=== PATIENT | female | born 1965 | race African-American/Black ===

== ENCOUNTER 2018-08-26 19:58 | Inpatient (IN) ==
[2018-08-26 21:43] LABS: Basophils # 0.1 10*3/uL (0.0-0.2); Basophils % 0.6 % (0.0-0.8); Eosinophils # 0.1 10*3/uL (0.0-0.87); Eosinophils % 0.7 % (0.00-10.9); Hematocrit 21.8 VOL% (35.7-47.0); Hemoglobin 7.8 GM/DL (12.0-16.0); Immature Granulocytes % 2.4 %; Immature Granulocytes Absolute 0.29 #; Lymphocytes # 4.1 10*3/uL (1.4-4.0); Lymphocytes % 33.6 % (21.3-54.2); Mean Corpuscular HGB Conc 35.8 GM/DL (32-36); Mean Corpuscular Volume 93.2 FL (87-102); Mean Platelet Volume 10.2 FL (9.6-12.0); Monocytes % 9.2 % (1.7-12.7); Neutrophils % 53.5 % (38.7-73.9); Platelet Count 63 T/CUMM (130-400); Red Blood Count 2.34 MC/CUMM (3.8-5.5); Red Cell Distribution Width 19.5 % (9.3-17.3); White Blood Count 12.3 T/CUMM (4-12)
[2018-08-26 21:50] LABS: Apearance,Urine CLEAR (Clear); Blood, Urine Negative (Negative); Glucose,Urine (UA) Negative (Negative); Ketones,Urine Negative (Negative); Nitrite,Urine Negative (Negative); Protein,Urine Negative; Urine Color Amber (Yellow)
[2018-08-26 21:53] LABS: Albumin 1.6 G/DL (3.4-5.0); Bilirubin,Total 8.5 MG/DL (0.2-1.0); Calcium 8.1 MG/DL (8.5-10.1); Osmolality,Calculated 271.7 MOS/KG (273-304)
[2018-08-26 22:01] LABS: INR 2.5
[2018-08-26 22:02] LABS: PT Patient Result 26.7 SECS
[2018-08-26 22:04] LABS: Bilirubin,Urine Moderate mg/dL (Negative)
[2018-08-27] MEDS ORDERED: diphenhydrAMINE 50 MG/1 ML VIAL IV STA (00:14)
[2018-08-27] MEDS ORDERED: ALBUTEROL 2.5 MG/3 ML NEB RESP TX PRN (00:25)
[2018-08-27] MEDS ORDERED: PHYTONADIONE 10 MG/1 ML AMP SUBCUT ONE (00:31)
[2018-08-27] MEDS ORDERED: SODIUM CHLORIDE 0.9% 1,000 ML IV PRN (00:33)
[2018-08-27] MEDS: LORazepam 2 MG/1 ML VIAL IV PRN (01:49)
[2018-08-27 01:54] LABS: Platelet Estimate Decreased; Target Cells Few
[2018-08-27] MEDS: LEVOFLOXACIN INJ 500 MG in PREMIX 1 EACH IV SCH (03:33)
[2018-08-27] MEDS: POTASSIUM CHLORIDE 20 MEQ TABLET PO PRN ×3 (03:34→09:07)
[2018-08-27 07:23] LABS: Hematocrit 30.3 VOL% (35.7-47.0)
[2018-08-27 07:32] LABS: Hemoglobin 10.7 GM/DL (12.0-16.0)
[2018-08-27 07:38] LABS: INR 2.2
[2018-08-27 07:39] LABS: PT Patient Result 23.7 SECS
[2018-08-27 07:41] LABS: Albumin 1.7 G/DL (3.4-5.0); Bilirubin,Total 8.4 MG/DL (0.2-1.0); Calcium 8.1 MG/DL (8.5-10.1); Osmolality,Calculated 272.5 MOS/KG (273-304); Total Protein 8.2 G/DL (6.4-8.3)
[2018-08-27 08:27] LABS: Hematocrit 28.8 VOL% (35.7-47.0); Hemoglobin 10.5 GM/DL (12.0-16.0)
[2018-08-27] MEDS ORDERED: THIAMINE 200 MG/2 ML VIAL IV SCH (09:00)
[2018-08-27] MEDS ORDERED: PANTOPRAZOLE 40 MG VIAL IV SCH (09:00)
[2018-08-27] MEDS: THIAMINE 100 MG TABLET PO SCH (09:07)
[2018-08-27] MEDS: FOLIC ACID 1 MG TABLET PO SCH (09:07)
[2018-08-27] MEDS: MULTIVITAMIN (CENTRUM) TABLET PO SCH (09:07)
[2018-08-27] MEDS ORDERED: chlordiazePOXIDE 10 MG CAPSULE PO SCH (09:30)
[2018-08-27] MEDS: CHOLESTYRAMINE 4 GM PACK PO SCH ×2 (10:09→21:16)
[2018-08-27 11:43] LABS: Hematocrit 28.3 VOL% (35.7-47.0); Hemoglobin 9.9 GM/DL (12.0-16.0)
[2018-08-27] MEDS ORDERED: ACETAMINOPHEN 325 MG TABLET PO PRN (11:57)
[2018-08-27] MEDS: chlordiazePOXIDE 10 MG CAPSULE PO SCH ×3 (12:33→21:16)
[2018-08-27 18:13] LABS: Hematocrit 27.3 VOL% (35.7-47.0); Hemoglobin 9.9 GM/DL (12.0-16.0)
[2018-08-27] MEDS ORDERED: OCTREOTIDE 100 MCG/ML SYRINGE IV ONE (18:46)
[2018-08-27] MEDS: OCTREOTIDE 500 MCG in SODIUM CHLORIDE 0.9% 100 ML IV SCH (21:00)
[2018-08-27] MEDS: diphenhydrAMINE CAP 25 MG CAPSULE PO PRN (22:20)
[2018-08-28 01:14] LABS: Hematocrit 28.9 VOL% (35.7-47.0); Hemoglobin 10.2 GM/DL (12.0-16.0)
[2018-08-28] MEDS: LEVOFLOXACIN INJ 500 MG in PREMIX 1 EACH IV SCH (03:11)
[2018-08-28 04:48] LABS: Basophils # 0.1 10*3/uL (0.0-0.2); Basophils % 0.5 % (0.0-0.8); Eosinophils # 0.2 10*3/uL (0.0-0.87); Eosinophils % 1.2 % (0.00-10.9); Hemoglobin 10.1 GM/DL (12.0-16.0); Immature Granulocytes % 2.3 %; Lymphocytes # 4.4 10*3/uL (1.4-4.0); Lymphocytes % 34.3 % (21.3-54.2); Mean Corpuscular HGB Conc 36.1 GM/DL (32-36); Mean Platelet Volume 10.7 FL (9.6-12.0); Neutrophils % 51.7 % (38.7-73.9); Platelet Count 64 T/CUMM (130-400); Red Blood Count 3.11 MC/CUMM (3.8-5.5); Red Cell Distribution Width 18.4 % (9.3-17.3)
[2018-08-28 05:03] LABS: Albumin 1.6 G/DL (3.4-5.0); Bilirubin,Total 10.4 MG/DL (0.2-1.0); Calcium 8.4 MG/DL (8.5-10.1); Osmolality,Calculated 268.8 MOS/KG (273-304); Total Protein 7.8 G/DL (6.4-8.3)
[2018-08-28 05:46] LABS: Anisocytosis 1+; Band Neutrophils 3 % (0-10); Hypochromasia 2+; Lymphocytes 35 % (20-55); Macrocytosis 1+; Metamyelocytes 2 %; Platelet Estimate Decreased; Segmented Neutrophils 51 % (50-85); Target Cells 1+; Total Cells Counted 100
[2018-08-28] MEDS: diphenhydrAMINE 50 MG/1 ML VIAL IV PRN (06:25)
[2018-08-28] MEDS: LACTATED RINGERS 500 ML IV SCH ×2 (06:28→11:29)
[2018-08-28] MEDS ORDERED: MIDAZOLAM 2 MG/2 ML VIAL IV ONE (10:24)
[2018-08-28] MEDS ORDERED: fentaNYL 100 MCG/2 ML VIAL IV ONE (10:24)
[2018-08-28] MEDS: FOLIC ACID 1 MG TABLET PO SCH (10:27)
[2018-08-28] MEDS: MULTIVITAMIN (CENTRUM) TABLET PO SCH (10:27)
[2018-08-28] MEDS: chlordiazePOXIDE 10 MG CAPSULE PO SCH ×4 (10:28→21:18)
[2018-08-28] MEDS: THIAMINE 100 MG TABLET PO SCH (10:29)
[2018-08-28] MEDS: CHOLESTYRAMINE 4 GM PACK PO SCH ×2 (10:29→21:18)
[2018-08-28] MEDS: diphenhydrAMINE 2% CREAM 28 GM TUBE TOP PRN (11:07)
[2018-08-28] MEDS: PANTOPRAZOLE 40 MG VIAL IV SCH (11:07)
[2018-08-28] MEDS ORDERED: ETOMIDATE 20 MG/10 ML VIAL IV ONE (13:47)
[2018-08-28] MEDS ORDERED: LIDOCAINE 2% 5 ML VIAL ONE (13:47)
[2018-08-28] MEDS ORDERED: PROPOFOL 200 MG/20 ML VIAL IV ONE (13:47)
[2018-08-28] MEDS ORDERED: PHENYLEPHRINE 1 MG/10 ML SYRINGE IV ONE (13:47)
[2018-08-28] MEDS: OCTREOTIDE 500 MCG in SODIUM CHLORIDE 0.9% 100 ML IV SCH (16:51)
[2018-08-28] MEDS: diphenhydrAMINE CAP 25 MG CAPSULE PO PRN ×2 (16:51→23:03)
[2018-08-28] MEDS: FUROSEMIDE 40 MG TABLET PO SCH (16:51)
[2018-08-29 04:34] LABS: Basophils % 0.3 % (0.0-0.8); Eosinophils # 0.1 10*3/uL (0.0-0.87); Eosinophils % 1.1 % (0.00-10.9); Hematocrit 23.8 VOL% (35.7-47.0); Hemoglobin 8.6 GM/DL (12.0-16.0); Immature Granulocytes % 1.2 %; Immature Granulocytes Absolute 0.14 #; Lymphocytes # 3.7 10*3/uL (1.4-4.0); Lymphocytes % 31.3 % (21.3-54.2); Mean Corpuscular HGB Conc 36.1 GM/DL (32-36); Mean Corpuscular Volume 91.2 FL (87-102); Mean Platelet Volume 11.3 FL (9.6-12.0); Monocytes % 7.9 % (1.7-12.7); NRBC # 0.02 10*3/uL; Neutrophils % 58.2 % (38.7-73.9); Platelet Count 62 T/CUMM (130-400); Red Blood Count 2.61 MC/CUMM (3.8-5.5); Red Cell Distribution Width 17.5 % (9.3-17.3); White Blood Count 11.7 T/CUMM (4-12)
[2018-08-29] MEDS: OCTREOTIDE 500 MCG in SODIUM CHLORIDE 0.9% 100 ML IV SCH (04:39)
[2018-08-29 05:07] LABS: Albumin 1.3 G/DL (3.4-5.0); Bilirubin,Total 10.6 MG/DL (0.2-1.0); Calcium 7.6 MG/DL (8.5-10.1); Osmolality,Calculated 271.7 MOS/KG (273-304); Total Protein 6.7 G/DL (6.4-8.3)
[2018-08-29] MEDS: diphenhydrAMINE CAP 25 MG CAPSULE PO PRN (05:10)
[2018-08-29 05:30] LABS: Band Neutrophils 1 % (0-10); Eosinophils 1 % (0-10); Lymphocytes 24 % (20-55); Segmented Neutrophils 70 % (50-85); Total Cells Counted 100
[2018-08-29 05:31] LABS: Target Cells 1+
[2018-08-29 05:32] LABS: Anisocytosis Slight; Microcytosis Slight; Platelet Estimate Decreased
[2018-08-29] MEDS: chlordiazePOXIDE 10 MG CAPSULE PO SCH ×4 (09:06→21:25)
[2018-08-29] MEDS: MULTIVITAMIN (CENTRUM) TABLET PO SCH (09:06)
[2018-08-29] MEDS: PANTOPRAZOLE 40 MG VIAL IV SCH (09:07)
[2018-08-29] MEDS: CHOLESTYRAMINE 4 GM PACK PO SCH ×2 (09:07→21:19)
[2018-08-29] MEDS: FUROSEMIDE 40 MG TABLET PO SCH (09:07)
[2018-08-29] MEDS: FOLIC ACID 1 MG TABLET PO SCH (09:07)
[2018-08-29] MEDS: THIAMINE 100 MG TABLET PO SCH (09:07)
[2018-08-29] MEDS: LEVOFLOXACIN INJ 500 MG in PREMIX 1 EACH IV SCH (09:08)
[2018-08-29] MEDS: diphenhydrAMINE 50 MG/1 ML VIAL IV PRN (10:16)
[2018-08-29] MEDS ORDERED: methylPREDNISolone SOD SUC 125 MG/2 ML VIAL IV ONE (10:30)
[2018-08-29] MEDS ORDERED: FAMOTIDINE 20 MG TABLET PO ONE (12:10)
[2018-08-29] MEDS: diphenhydrAMINE 2% CREAM 28 GM TUBE TOP PRN (13:36)
[2018-08-29] MEDS: CHLORHEXIDINE 0.12% ORAL RINSE 60 ML BOTTLE SWISH/SPIT SCH ×2 (13:36→21:27)
[2018-08-29] MEDS: IBUPROFEN 400 MG TABLET PO PRN (17:48)
[2018-08-30] MEDS ORDERED: HALOPERIDOL 5 MG/ML AMP IV ONE (03:42)
[2018-08-30 05:15] LABS: Basophils % 0.1 % (0.0-0.8); Hematocrit 23.7 VOL% (35.7-47.0); Hemoglobin 8.4 GM/DL (12.0-16.0); Immature Granulocytes % 1.5 %; Immature Granulocytes Absolute 0.17 #; Lymphocytes # 1.8 10*3/uL (1.4-4.0); Lymphocytes % 15.7 % (21.3-54.2); Mean Corpuscular HGB Conc 35.4 GM/DL (32-36); Mean Corpuscular Volume 91.9 FL (87-102); Mean Platelet Volume 11.1 FL (9.6-12.0); Monocytes % 1.7 % (1.7-12.7); Platelet Count 70 T/CUMM (130-400); Red Blood Count 2.58 MC/CUMM (3.8-5.5); Red Cell Distribution Width 18.4 % (9.3-17.3); White Blood Count 11.4 T/CUMM (4-12)
[2018-08-30] MEDS ORDERED: LORazepam 2 MG/1 ML VIAL IV ONE (05:28)
[2018-08-30 05:42] LABS: Calcium 7.2 MG/DL (8.5-10.1); Osmolality,Calculated 281.5 MOS/KG (273-304)
[2018-08-30 05:52] LABS: Lymphocytes 5 % (20-55); Segmented Neutrophils 95 % (50-85); Total Cells Counted 100
[2018-08-30 05:53] LABS: Anisocytosis Slight; Microcytosis Slight; Target Cells 2+
[2018-08-30 05:54] LABS: Platelet Estimate Decreased
[2018-08-30] MEDS ORDERED: MAGNESIUM SULF RIDER 2 GM in PREMIX 1 EACH IV ONE (06:00)
[2018-08-30] MEDS: PANTOPRAZOLE 40 MG TABLET PO SCH (06:37)
[2018-08-30] MEDS: LORazepam 2 MG/1 ML VIAL IV PRN ×3 (09:35→21:26)
[2018-08-30] MEDS: chlordiazePOXIDE 10 MG CAPSULE PO SCH ×4 (10:30→20:59)
[2018-08-30] MEDS: POTASSIUM CHLORIDE 20 MEQ TABLET PO PRN ×3 (10:30→17:23)
[2018-08-30] MEDS: LACTULOSE 20 GM/30 ML UDCUP PO SCH ×4 (11:25→21:00)
[2018-08-30 12:30] LABS: Albumin 1.4 G/DL (3.4-5.0); Bilirubin,Direct 7.69 MG/DL (0.0-0.20); Bilirubin,Indirect 2.6 MG/DL (0.0-1.0); Bilirubin,Total 10.3 MG/DL (0.2-1.0); Total Protein 7.2 G/DL (6.4-8.3)
[2018-08-30] MEDS: FUROSEMIDE 40 MG TABLET PO SCH (17:22)
[2018-08-30] MEDS: CHOLESTYRAMINE 4 GM PACK PO SCH ×2 (17:22→21:00)
[2018-08-30] MEDS: THIAMINE 100 MG TABLET PO SCH (17:22)
[2018-08-30] MEDS: MULTIVITAMIN (CENTRUM) TABLET PO SCH (17:22)
[2018-08-30] MEDS: FOLIC ACID 1 MG TABLET PO SCH (17:22)
[2018-08-30] MEDS: CHLORHEXIDINE 0.12% ORAL RINSE 60 ML BOTTLE SWISH/SPIT SCH ×2 (17:23→21:00)
[2018-08-30] MEDS: HALOPERIDOL 5 MG/ML AMP IV PRN (18:37)
[2018-08-30] MEDS: CIPROFLOXACIN INJ 400 MG in PREMIX 1 EACH IV SCH (19:37)
[2018-08-30] MEDS: metroNIDAZOLE INJ 500 MG in PREMIX 1 EACH IV SCH (21:00)
[2018-08-30] MEDS: diphenhydrAMINE 2% CREAM 28 GM TUBE TOP PRN (21:32)
[2018-08-31] MEDS: LACTULOSE 20 GM/30 ML UDCUP PO SCH ×5 (03:26→21:42)
[2018-08-31] MEDS: metroNIDAZOLE INJ 500 MG in PREMIX 1 EACH IV SCH ×3 (04:20→21:42)
[2018-08-31] MEDS: PANTOPRAZOLE 40 MG TABLET PO SCH (06:13)
[2018-08-31] MEDS: CIPROFLOXACIN INJ 400 MG in PREMIX 1 EACH IV SCH ×2 (06:13→17:32)
[2018-08-31 06:32] LABS: Basophils % 0.1 % (0.0-0.8); Hematocrit 24.6 VOL% (35.7-47.0); Hemoglobin 8.7 GM/DL (12.0-16.0); Immature Granulocytes % 2.1 %; Immature Granulocytes Absolute 0.26 #; Lymphocytes # 1.5 10*3/uL (1.4-4.0); Lymphocytes % 12.3 % (21.3-54.2); Mean Corpuscular HGB Conc 35.4 GM/DL (32-36); Mean Corpuscular Volume 93.2 FL (87-102); Mean Platelet Volume 11.3 FL (9.6-12.0); Monocytes % 5.9 % (1.7-12.7); NRBC # 0.03 10*3/uL; Neutrophils % 79.6 % (38.7-73.9); Platelet Count 79 T/CUMM (130-400); Red Blood Count 2.64 MC/CUMM (3.8-5.5); Red Cell Distribution Width 18.5 % (9.3-17.3); White Blood Count 12.5 T/CUMM (4-12)
[2018-08-31 07:03] LABS: Platelet Estimate Decreased
[2018-08-31 07:05] LABS: Albumin 1.4 G/DL (3.4-5.0); Anisocytosis 2+; Bilirubin,Total 10.2 MG/DL (0.2-1.0); Calcium 7.5 MG/DL (8.5-10.1); Osmolality,Calculated 285.1 MOS/KG (273-304); Total Protein 7.3 G/DL (6.4-8.3)
[2018-08-31 07:06] LABS: Macrocytosis 2+; Target Cells Few
[2018-08-31] MEDS ORDERED: MAGNESIUM SULF RIDER 4 GM in PREMIX 1 EACH IV ONE (08:07)
[2018-08-31] MEDS: FOLIC ACID 1 MG TABLET PO SCH (09:09)
[2018-08-31] MEDS: CHLORHEXIDINE 0.12% ORAL RINSE 60 ML BOTTLE SWISH/SPIT SCH ×2 (09:09→21:42)
[2018-08-31] MEDS: chlordiazePOXIDE 10 MG CAPSULE PO SCH ×4 (09:09→21:41)
[2018-08-31] MEDS: MULTIVITAMIN (CENTRUM) TABLET PO SCH (09:09)
[2018-08-31] MEDS: FUROSEMIDE 40 MG TABLET PO SCH (09:09)
[2018-08-31] MEDS: THIAMINE 100 MG TABLET PO SCH (09:10)
[2018-08-31] MEDS: CHOLESTYRAMINE 4 GM PACK PO SCH ×2 (09:10→21:42)
[2018-09-01] MEDS: IBUPROFEN 400 MG TABLET PO PRN (03:57)
[2018-09-01] MEDS: LACTULOSE 20 GM/30 ML UDCUP PO SCH ×6 (03:57→21:01)
[2018-09-01] MEDS: metroNIDAZOLE INJ 500 MG in PREMIX 1 EACH IV SCH ×3 (03:57→21:14)
[2018-09-01] MEDS: CIPROFLOXACIN INJ 400 MG in PREMIX 1 EACH IV SCH ×2 (05:32→17:47)
[2018-09-01] MEDS: PANTOPRAZOLE 40 MG TABLET PO SCH (06:34)
[2018-09-01 08:25] LABS: Basophils % 0.1 % (0.0-0.8); Eosinophils # 0.1 10*3/uL (0.0-0.87); Eosinophils % 0.7 % (0.00-10.9); Immature Granulocytes % 4.7 %; Immature Granulocytes Absolute 0.64 #; Lymphocytes # 4.3 10*3/uL (1.4-4.0); Lymphocytes % 31.2 % (21.3-54.2); Mean Corpuscular HGB Conc 34.8 GM/DL (32-36); Mean Corpuscular Volume 93.9 FL (87-102); Mean Platelet Volume 10.4 FL (9.6-12.0); Monocytes % 13.4 % (1.7-12.7); NRBC # 0.07 10*3/uL; Neutrophils % 49.9 % (38.7-73.9); Platelet Count 82 T/CUMM (130-400); Red Blood Count 2.45 MC/CUMM (3.8-5.5); Red Cell Distribution Width 19.2 % (9.3-17.3); White Blood Count 13.7 T/CUMM (4-12)
[2018-09-01 08:50] LABS: Albumin 1.3 G/DL (3.4-5.0); Calcium 7.7 MG/DL (8.5-10.1); Osmolality,Calculated 275.7 MOS/KG (273-304); Total Protein 6.8 G/DL (6.4-8.3)
[2018-09-01 08:59] LABS: Lymphocytes 29 % (20-55); Platelet Estimate Decreased; Segmented Neutrophils 60 % (50-85); Total Cells Counted 100
[2018-09-01 09:00] LABS: Hypochromasia Slight; Target Cells Few
[2018-09-01 09:01] LABS: Microcytosis Slight
[2018-09-01] MEDS: chlordiazePOXIDE 10 MG CAPSULE PO SCH ×4 (09:41→21:27)
[2018-09-01] MEDS: FUROSEMIDE 40 MG TABLET PO SCH (09:41)
[2018-09-01] MEDS: MULTIVITAMIN (CENTRUM) TABLET PO SCH (09:41)
[2018-09-01] MEDS: THIAMINE 100 MG TABLET PO SCH (09:41)
[2018-09-01] MEDS: FOLIC ACID 1 MG TABLET PO SCH (09:41)
[2018-09-01] MEDS: CHOLESTYRAMINE 4 GM PACK PO SCH ×2 (09:41→21:27)
[2018-09-01] MEDS: CHLORHEXIDINE 0.12% ORAL RINSE 60 ML BOTTLE SWISH/SPIT SCH ×2 (09:42→21:11)
[2018-09-01] MEDS ORDERED: SODIUM CHLORIDE 0.9% 500 ML IV ONE (16:43)
[2018-09-01 16:50] LABS: Hematocrit 22.1 VOL% (35.7-47.0); Hemoglobin 7.8 GM/DL (12.0-16.0)
[2018-09-01] MEDS: POTASSIUM CHLORIDE 20 MEQ TABLET PO SCH (17:05)
[2018-09-02] MEDS: LACTULOSE 20 GM/30 ML UDCUP PO SCH ×6 (01:53→21:01)
[2018-09-02] MEDS: metroNIDAZOLE INJ 500 MG in PREMIX 1 EACH IV SCH ×3 (03:51→20:59)
[2018-09-02 04:30] LABS: Basophils # 0.1 10*3/uL (0.0-0.2); Basophils % 0.4 % (0.0-0.8); Eosinophils # 0.2 10*3/uL (0.0-0.87); Eosinophils % 1.3 % (0.00-10.9); Hematocrit 23.3 VOL% (35.7-47.0); Hemoglobin 8.1 GM/DL (12.0-16.0); Immature Granulocytes % 5.6 %; Mean Corpuscular HGB Conc 34.8 GM/DL (32-36); Mean Corpuscular Volume 95.5 FL (87-102); Mean Platelet Volume 10.7 FL (9.6-12.0); Monocytes % 11.1 % (1.7-12.7); NRBC # 0.06 10*3/uL; Neutrophils % 46.6 % (38.7-73.9); Platelet Count 91 T/CUMM (130-400); Red Blood Count 2.44 MC/CUMM (3.8-5.5); Red Cell Distribution Width 19.9 % (9.3-17.3); White Blood Count 14.2 T/CUMM (4-12)
[2018-09-02 04:43] LABS: INR 1.9; PT Patient Result 20.4 SECS
[2018-09-02 05:11] LABS: Albumin 1.4 G/DL (3.4-5.0); Bilirubin,Total 7.8 MG/DL (0.2-1.0); Osmolality,Calculated 283.3 MOS/KG (273-304); Total Protein 6.8 G/DL (6.4-8.3)
[2018-09-02 05:12] LABS: Anisocytosis 2+; Band Neutrophils 3 % (0-10); Hypochromasia 1+; Lymphocytes 32 % (20-55); Microcytosis 1+; Polychromasia Slight; Segmented Neutrophils 59 % (50-85); Smudge Cells Few; Target Cells 1+; Total Cells Counted 100
[2018-09-02 05:13] LABS: Macrocytosis Slight; Platelet Estimate Decreased
[2018-09-02] MEDS: PANTOPRAZOLE 40 MG TABLET PO SCH (05:37)
[2018-09-02] MEDS: CIPROFLOXACIN INJ 400 MG in PREMIX 1 EACH IV SCH ×2 (05:46→17:34)
[2018-09-02] MEDS: CHLORHEXIDINE 0.12% ORAL RINSE 60 ML BOTTLE SWISH/SPIT SCH ×2 (10:24→21:01)
[2018-09-02] MEDS: MULTIVITAMIN (CENTRUM) TABLET PO SCH (10:24)
[2018-09-02] MEDS: FOLIC ACID 1 MG TABLET PO SCH (10:24)
[2018-09-02] MEDS: POTASSIUM CHLORIDE 20 MEQ TABLET PO SCH (10:24)
[2018-09-02] MEDS: THIAMINE 100 MG TABLET PO SCH (10:24)
[2018-09-02] MEDS: FUROSEMIDE 40 MG TABLET PO SCH (10:24)
[2018-09-02] MEDS: CHOLESTYRAMINE 4 GM PACK PO SCH ×2 (10:31→20:59)
[2018-09-02] MEDS: chlordiazePOXIDE 10 MG CAPSULE PO SCH ×4 (10:31→21:01)
[2018-09-02] MEDS: NYSTATIN 500,000 UNIT/5 ML UDCUP SWISH/SWAL SCH ×2 (17:25→21:01)
[2018-09-03] MEDS: LACTULOSE 20 GM/30 ML UDCUP PO SCH ×6 (02:45→21:01)
[2018-09-03] MEDS: metroNIDAZOLE INJ 500 MG in PREMIX 1 EACH IV SCH ×3 (04:43→20:54)
[2018-09-03 04:58] LABS: Basophils # 0.1 10*3/uL (0.0-0.2); Basophils % 0.4 % (0.0-0.8); Eosinophils # 0.2 10*3/uL (0.0-0.87); Eosinophils % 1.2 % (0.00-10.9); Hematocrit 24.7 VOL% (35.7-47.0); Hemoglobin 8.6 GM/DL (12.0-16.0); Immature Granulocytes % 4.5 %; Immature Granulocytes Absolute 0.74 #; Lymphocytes # 4.9 10*3/uL (1.4-4.0); Lymphocytes % 30.2 % (21.3-54.2); Mean Corpuscular HGB Conc 34.8 GM/DL (32-36); Mean Corpuscular Volume 95.7 FL (87-102); Mean Platelet Volume 10.8 FL (9.6-12.0); Monocytes % 11.8 % (1.7-12.7); NRBC # 0.04 10*3/uL; Neutrophils % 51.9 % (38.7-73.9); Platelet Count 102 T/CUMM (130-400); Red Blood Count 2.58 MC/CUMM (3.8-5.5); White Blood Count 16.4 T/CUMM (4-12)
[2018-09-03 05:20] LABS: Albumin 1.4 G/DL (3.4-5.0); Bilirubin,Total 7.9 MG/DL (0.2-1.0); Calcium 8.1 MG/DL (8.5-10.1); Osmolality,Calculated 288.7 MOS/KG (273-304); Total Protein 7.3 G/DL (6.4-8.3)
[2018-09-03] MEDS: CIPROFLOXACIN INJ 400 MG in PREMIX 1 EACH IV SCH ×2 (05:44→18:49)
[2018-09-03] MEDS: PANTOPRAZOLE 40 MG TABLET PO SCH (05:44)
[2018-09-03] MEDS: POTASSIUM CHLORIDE 20 MEQ TABLET PO PRN (05:45)
[2018-09-03 06:16] LABS: Anisocytosis 1+; Hypochromasia 1+; Platelet Estimate Adequate; Target Cells Few
[2018-09-03] MEDS: chlordiazePOXIDE 10 MG CAPSULE PO SCH (13:47)
[2018-09-03] MEDS: FUROSEMIDE 40 MG TABLET PO SCH (15:02)
[2018-09-03] MEDS: MULTIVITAMIN (CENTRUM) TABLET PO SCH (15:02)
[2018-09-03] MEDS: THIAMINE 100 MG TABLET PO SCH (15:03)
[2018-09-03] MEDS: POTASSIUM CHLORIDE 20 MEQ TABLET PO SCH ×2 (15:04→21:01)
[2018-09-03] MEDS: CHLORHEXIDINE 0.12% ORAL RINSE 60 ML BOTTLE SWISH/SPIT SCH ×2 (18:43→21:01)
[2018-09-03] MEDS: NYSTATIN 500,000 UNIT/5 ML UDCUP SWISH/SWAL SCH ×3 (18:43→21:01)
[2018-09-03] MEDS: CHOLESTYRAMINE 4 GM PACK PO SCH ×2 (18:48→21:01)
[2018-09-03] MEDS: FOLIC ACID 1 MG TABLET PO SCH (18:48)
[2018-09-04] MEDS: LACTULOSE 20 GM/30 ML UDCUP PO SCH ×3 (02:56→09:59)
[2018-09-04] MEDS: metroNIDAZOLE INJ 500 MG in PREMIX 1 EACH IV SCH (03:02)
[2018-09-04 04:44] LABS: Basophils # 0.1 10*3/uL (0.0-0.2); Basophils % 0.4 % (0.0-0.8); Eosinophils # 0.2 10*3/uL (0.0-0.87); Eosinophils % 1.2 % (0.00-10.9); Hematocrit 25.1 VOL% (35.7-47.0); Hemoglobin 8.5 GM/DL (12.0-16.0); Immature Granulocytes Absolute 0.54 #; Lymphocytes # 3.9 10*3/uL (1.4-4.0); Lymphocytes % 28.2 % (21.3-54.2); Mean Corpuscular HGB Conc 33.9 GM/DL (32-36); Mean Platelet Volume 10.9 FL (9.6-12.0); Monocytes % 15.2 % (1.7-12.7); NRBC # 0.05 10*3/uL; Platelet Count 116 T/CUMM (130-400); Red Blood Count 2.56 MC/CUMM (3.8-5.5); Red Cell Distribution Width 22.1 % (9.3-17.3); White Blood Count 13.7 T/CUMM (4-12)
[2018-09-04 05:31] LABS: Albumin 1.3 G/DL (3.4-5.0); Bilirubin,Total 8.7 MG/DL (0.2-1.0); Calcium 8.2 MG/DL (8.5-10.1); Total Protein 7.1 G/DL (6.4-8.3)
[2018-09-04] MEDS: diphenhydrAMINE CAP 25 MG CAPSULE PO PRN (05:36)
[2018-09-04] MEDS: PANTOPRAZOLE 40 MG TABLET PO SCH (05:36)
[2018-09-04] MEDS: HALOPERIDOL 5 MG/ML AMP IV PRN (05:36)
[2018-09-04] MEDS: CIPROFLOXACIN INJ 400 MG in PREMIX 1 EACH IV SCH (05:36)
[2018-09-04 06:24] LABS: Band Neutrophils 1 % (0-10); Eosinophils 5 % (0-10); Hypochromasia 1+; Lymphocytes 20 % (20-55); Platelet Estimate Decreased; Segmented Neutrophils 65 % (50-85); Target Cells Few; Total Cells Counted 100
[2018-09-04 06:25] LABS: Macrocytosis Slight
[2018-09-04 08:21] VITALS: BP 109/71
[2018-09-04] MEDS: POTASSIUM CHLORIDE 20 MEQ TABLET PO SCH (09:58)
[2018-09-04] MEDS: FUROSEMIDE 40 MG TABLET PO SCH (09:58)
[2018-09-04] MEDS: THIAMINE 100 MG TABLET PO SCH (09:58)
[2018-09-04] MEDS: MULTIVITAMIN (CENTRUM) TABLET PO SCH (09:58)
[2018-09-04] MEDS: NYSTATIN 500,000 UNIT/5 ML UDCUP SWISH/SWAL SCH (09:59)
[2018-09-04] MEDS: CHOLESTYRAMINE 4 GM PACK PO SCH (09:59)
[2018-09-04] MEDS: FOLIC ACID 1 MG TABLET PO SCH (09:59)
[2018-09-04] MEDS: CHLORHEXIDINE 0.12% ORAL RINSE 60 ML BOTTLE SWISH/SPIT SCH (13:03)
== END 2018-09-04 11:30 | disposition home health service (06) | DRG 445 ==
LOC: EDBD → EDUNIT# → N.ED 19:58 → N.EDINP 08-27 00:25 → SUATTDRO 08-27 00:25 → N.ICU 08-27 00:59 → N.2E 08-27 21:52
PROVIDERS: ADMIT Internal Medicine; ATTEND Hospitalist

== ENCOUNTER 2018-12-13 13:26 | Inpatient (IN) ==
[2018-12-13] MEDS ORDERED: methylPREDNISolone SOD SUC 125 MG/2 ML VIAL IV STA ×2 (16:05→18:44)
[2018-12-13] MEDS ORDERED: KETOROLAC 30 MG/1 ML VIAL IV STA (16:05)
[2018-12-13] MEDS ORDERED: CLINDAMYCIN INJ 900 MG in PREMIX 1 EACH IV STA (16:05)
[2018-12-13 16:59] LABS: Basophils # 0.1 10*3/uL (0.0-0.2); Basophils % 0.5 % (0.0-0.8); Eosinophils # 0.2 10*3/uL (0.0-0.87); Eosinophils % 1.7 % (0.00-10.9); Hematocrit 24.2 VOL% (35.7-47.0); Hemoglobin 8.3 GM/DL (12.0-16.0); Immature Granulocytes % 1.4 %; Immature Granulocytes Absolute 0.15 #; Lymphocytes # 4.5 10*3/uL (1.4-4.0); Lymphocytes % 42.2 % (21.3-54.2); Mean Corpuscular HGB Conc 34.3 GM/DL (32-36); Mean Corpuscular Volume 102.5 FL (87-102); Mean Platelet Volume 10.9 FL (9.6-12.0); Neutrophils % 44.2 % (38.7-73.9); Platelet Count 100 T/CUMM (130-400); Red Blood Count 2.36 MC/CUMM (3.8-5.5); Red Cell Distribution Width 21.1 % (9.3-17.3); White Blood Count 10.6 T/CUMM (4-12)
[2018-12-13 17:19] LABS: INR 2.2
[2018-12-13 17:22] LABS: Apearance,Urine CLEAR (Clear); Bacteria,Urine Occasional /HPF (Few); Blood, Urine Negative (Negative); Glucose,Urine (UA) Negative (Negative); Ketones,Urine Negative (Negative); Nitrite,Urine Negative (Negative); Protein,Urine Negative; RBC,Urine <1 /HPF (0-4); Squamous Epithelial Cell,Urine Occasional /HPF (0-10); Urine Color Amber (Yellow); Urine Specific Gravity 1.008 (1.001-1.035); WBC,Urine 2 /HPF (0-6)
[2018-12-13 17:23] LABS: PT Patient Result 23.5 SECS (9.6-12.2)
[2018-12-13 17:30] LABS: Alanine Aminotransferase 48 U/L (13-56); Albumin 1.4 G/DL (3.4-5.0); Alkaline Phosphatase 246 U/L (45-117); Aspartate Amino Transferase 106 U/L (0-37); Blood Urea Nitrogen 5 MG/DL (7-18); Calcium 7.9 MG/DL (8.5-10.1); Estimated Glom Filtration Rate 102 ML/MIN; Glucose 110 MG/DL (74-106); Osmolality,Calculated 272.7 MOS/KG (273-304); Total Protein 7.6 G/DL (6.4-8.3)
[2018-12-13 17:31] LABS: Bilirubin,Urine Moderate mg/dL (Negative)
[2018-12-13 17:33] LABS: Anisocytosis 1+; Eosinophils 3 % (0-10); Lymphocytes 39 % (20-55); Macrocytosis 1+; Polychromasia 1+; Segmented Neutrophils 57 % (50-85); Target Cells Slight; Total Cells Counted 100
[2018-12-13 17:34] LABS: Acanthocytes Few; Atypical Lymphocytes Few; Microcytosis Slight; Platelet Estimate Normal; Poikilocytosis 1+
[2018-12-13] MEDS ORDERED: diphenhydrAMINE 50 MG/1 ML VIAL IV STA (18:44)
[2018-12-13] MEDS ORDERED: diphenhydrAMINE 50 MG/1 ML VIAL ONE (18:44)
[2018-12-13] MEDS ORDERED: LEVOFLOXACIN INJ 750 MG in PREMIX 1 EACH IV STA (19:37)
[2018-12-13] MEDS ORDERED: ONDANSETRON 4 MG/2 ML VIAL IV PRN (19:57)
[2018-12-13] MEDS ORDERED: PHYTONADIONE 10 MG/1 ML AMP SUBCUT ONE (20:13)
[2018-12-13] MEDS ORDERED: LACTULOSE 20 GM/30 ML UDCUP PO PRN (20:15)
[2018-12-13 20:35] LABS: Albumin 1.4 G/DL (3.4-5.0); Bilirubin,Direct 6.91 MG/DL (0.0-0.20); Bilirubin,Total 8.9 MG/DL (0.2-1.0); Total Protein 7.6 G/DL (6.4-8.3)
[2018-12-13] MEDS ORDERED: LACTULOSE 20 GM/30 ML UDCUP PO SCH (21:00)
[2018-12-13] MEDS: PROPRANOLOL 20 MG TABLET PO SCH (22:30)
[2018-12-13] MEDS: SPIRONOLACTONE 25 MG TABLET PO SCH (22:30)
[2018-12-13] MEDS: cefTRIAXone 2,000 MG in SYRINGE 1 EACH IV SCH (22:32)
[2018-12-13] MEDS: DEXTROSE 5% NACL 0.9% 1,000 ML IV SCH (22:43)
[2018-12-13] MEDS: diphenhydrAMINE 50 MG/1 ML VIAL IV PRN (22:44)
[2018-12-14 05:17] LABS: Basophils % 0.3 % (0.0-0.8); Hemoglobin 8.6 GM/DL (12.0-16.0); Immature Granulocytes % 1.2 %; Immature Granulocytes Absolute 0.08 #; Lymphocytes % 14.9 % (21.3-54.2); Mean Corpuscular HGB Conc 34.4 GM/DL (32-36); Mean Corpuscular Volume 101.2 FL (87-102); Mean Platelet Volume 10.6 FL (9.6-12.0); Monocytes % 1.2 % (1.7-12.7); Neutrophils % 82.4 % (38.7-73.9); Platelet Count 109 T/CUMM (130-400); Red Blood Count 2.47 MC/CUMM (3.8-5.5); Red Cell Distribution Width 20.7 % (9.3-17.3); White Blood Count 6.9 T/CUMM (4-12)
[2018-12-14 05:35] LABS: Calcium 7.7 MG/DL (8.5-10.1); Osmolality,Calculated 277.5 MOS/KG (273-304)
[2018-12-14 05:37] LABS: Albumin 1.3 G/DL (3.4-5.0); Bilirubin,Direct 6.5 MG/DL (0.0-0.20); Bilirubin,Indirect 1.9 MG/DL (0.0-1.0); Bilirubin,Total 8.4 MG/DL (0.2-1.0); Total Protein 7.3 G/DL (6.4-8.3)
[2018-12-14 06:50] LABS: Platelet Estimate Decreased
[2018-12-14] MEDS: DEXTROSE 5% NACL 0.9% 1,000 ML IV SCH (07:13)
[2018-12-14] MEDS: SPIRONOLACTONE 25 MG TABLET PO SCH (09:03)
[2018-12-14] MEDS: PROPRANOLOL 20 MG TABLET PO SCH ×2 (09:03→21:54)
[2018-12-14] MEDS: PANTOPRAZOLE 40 MG TABLET PO SCH (09:04)
[2018-12-14] MEDS: FUROSEMIDE 40 MG/4 ML VIAL IV SCH (09:04)
[2018-12-14] MEDS: diphenhydrAMINE 50 MG/1 ML VIAL IV PRN ×2 (09:10→17:12)
[2018-12-14] MEDS: cefTRIAXone 2,000 MG in SYRINGE 1 EACH IV SCH (21:54)
[2018-12-15] MEDS ORDERED: SPIRONOLACTONE 25 MG TABLET PO SCH (09:00)
[2018-12-15] MEDS: PANTOPRAZOLE 40 MG TABLET PO SCH (09:58)
[2018-12-15] MEDS: FUROSEMIDE 40 MG/4 ML VIAL IV SCH (09:58)
[2018-12-15] MEDS: diphenhydrAMINE 50 MG/1 ML VIAL IV PRN ×2 (09:59→18:19)
[2018-12-15] MEDS: PROPRANOLOL 20 MG TABLET PO SCH ×2 (09:59→21:16)
[2018-12-15] MEDS: prednisoLONE 15 MG/5 ML ORAL.SYR PO SCH (10:02)
[2018-12-15] MEDS: DEXTROSE 5% NACL 0.9% 1,000 ML IV SCH (10:25)
[2018-12-15] MEDS: cefTRIAXone 2,000 MG in SYRINGE 1 EACH IV SCH (21:16)
[2018-12-16] MEDS: diphenhydrAMINE 50 MG/1 ML VIAL IV PRN ×2 (02:14→11:58)
[2018-12-16] MEDS ORDERED: SPIRONOLACTONE 25 MG TABLET PO SCH (09:00)
[2018-12-16] MEDS: FUROSEMIDE 40 MG/4 ML VIAL IV SCH (09:18)
[2018-12-16] MEDS: PROPRANOLOL 20 MG TABLET PO SCH (09:19)
[2018-12-16] MEDS: PANTOPRAZOLE 40 MG TABLET PO SCH (09:19)
[2018-12-16] MEDS: prednisoLONE 15 MG/5 ML ORAL.SYR PO SCH (09:22)
[2018-12-16 09:53] LABS: Albumin 1.4 G/DL (3.4-5.0); Bilirubin,Direct 6.73 MG/DL (0.0-0.20); Bilirubin,Indirect 1.8 MG/DL (0.0-1.0); Bilirubin,Total 8.5 MG/DL (0.2-1.0)
[2018-12-16 20:08] VITALS: BP 111/67
== END 2018-12-16 18:54 | disposition home or self-care (01) | DRG 433 ==
LOC: N.ED 13:26 → N.EDINP 19:57 → N.3E 20:30
PROVIDERS: ADMIT Internal Medicine; ATTEND Internal Medicine

== ENCOUNTER 2019-01-24 21:49 | Inpatient (IN) ==
[2019-01-24 22:22] LABS: Basophils % 0.2 % (0.0-0.8); Eosinophils # 0.2 10*3/uL (0.0-0.87); Eosinophils % 1.4 % (0.00-10.9); Hematocrit 22.5 VOL% (35.7-47.0); Hemoglobin 7.8 GM/DL (12.0-16.0); Immature Granulocytes Absolute 0.35 #; Lymphocytes # 2.9 10*3/uL (1.4-4.0); Lymphocytes % 24.4 % (21.3-54.2); Mean Corpuscular HGB Conc 34.7 GM/DL (32-36); Mean Corpuscular Volume 98.7 FL (87-102); Mean Platelet Volume 9.8 FL (9.6-12.0); Monocytes % 12.4 % (1.7-12.7); NRBC # 0.03 10*3/uL; Neutrophils % 58.6 % (38.7-73.9); Platelet Count 74 T/CUMM (130-400); Red Blood Count 2.28 MC/CUMM (3.8-5.5); Red Cell Distribution Width 17.2 % (9.3-17.3); White Blood Count 11.8 T/CUMM (4-12)
[2019-01-24 22:34] LABS: INR 2.1; Partial Thromboplastin Time 33.4 SECS (20.8-36.0)
[2019-01-24 22:37] LABS: PT Patient Result 22.3 SECS (9.6-12.2)
[2019-01-24 22:38] LABS: Albumin 1.3 G/DL (3.4-5.0); Bilirubin,Total 5.4 MG/DL (0.2-1.0); Calcium 7.8 MG/DL (8.5-10.1); Total Protein 6.4 G/DL (6.4-8.3)
[2019-01-24 22:55] LABS: Band Neutrophils 6 % (0-10); Eosinophils 1 % (0-10); Lymphocytes 36 % (20-55); Segmented Neutrophils 53 % (50-85); Total Cells Counted 100
[2019-01-24 22:56] LABS: Acanthocytes Few; Anisocytosis 1+; Hypochromasia Slight; Poikilocytosis 1+
[2019-01-24 22:57] LABS: Burr Cells 1+; Platelet Estimate Decreased
[2019-01-24] MEDS ORDERED: POTASSIUM CHLORIDE 20 MEQ/15 ML UDCUP PO ONE (23:35)
[2019-01-24] MEDS ORDERED: SODIUM CHLORIDE 0.9% 1,000 ML IV STA (23:43)
[2019-01-24 23:54] LABS: Apearance,Urine CLEAR (Clear); Bilirubin,Urine Negative (Negative); Blood, Urine Negative (Negative); Glucose,Urine (UA) Negative (Negative); Ketones,Urine Negative (Negative); Nitrite,Urine Negative (Negative); Protein,Urine Negative; RBC,Urine <1 /HPF (0-4); Squamous Epithelial Cell,Urine Occasional /HPF (0-10); Urine Color Yellow (Yellow); Urine Specific Gravity 1.005 (1.001-1.035); Urine Urobilinogen < 2.0 EU/DL (0.2-1.0); WBC,Urine <1 /HPF (0-6)
[2019-01-25] MEDS ORDERED: ONDANSETRON 4 MG/2 ML VIAL IV PRN (04:45)
[2019-01-25 05:56] LABS: Hematocrit 23.8 VOL% (35.7-47.0); Hemoglobin 8.5 GM/DL (12.0-16.0)
[2019-01-25] MEDS: PANTOPRAZOLE 40 MG VIAL IV SCH ×3 (05:57→21:25)
[2019-01-25] MEDS: SODIUM CHLORIDE 0.9% 1,000 ML IV SCH ×3 (06:01→21:25)
[2019-01-25] MEDS: LACTULOSE 20 GM/30 ML UDCUP PO SCH ×8 (06:01→21:25)
[2019-01-25 10:32] LABS: Barbiturates Screen,Urine Negative (Negative); Benzodiazepines Screen,Urine Negative (Negative); Cannabinoid Screen,Urine Negative (Negative); Opiate Screen,Urine Negative (Negative); Phencyclidine Screen,Urine Negative (Negative)
[2019-01-25] MEDS ORDERED: PHYTONADIONE 10 MG/1 ML AMP SUBCUT ONE (12:01)
[2019-01-25 12:15] LABS: Hematocrit 22.2 VOL% (35.7-47.0); Hemoglobin 7.8 GM/DL (12.0-16.0)
[2019-01-25] MEDS: predniSONE 20 MG TABLET PO SCH (15:47)
[2019-01-25 16:35] LABS: Hematocrit 22.9 VOL% (35.7-47.0)
[2019-01-25 22:47] LABS: Hematocrit 21.5 VOL% (35.7-47.0); Hemoglobin 7.6 GM/DL (12.0-16.0)
[2019-01-26] MEDS: LACTULOSE 20 GM/30 ML UDCUP PO SCH ×4 (05:09→21:45)
[2019-01-26 06:10] LABS: Basophils % 0.3 % (0.0-0.8); Eosinophils % 0.4 % (0.00-10.9); Hemoglobin 9.2 GM/DL (12.0-16.0); Immature Granulocytes % 1.9 %; Immature Granulocytes Absolute 0.19 #; Lymphocytes # 2.6 10*3/uL (1.4-4.0); Lymphocytes % 25.8 % (21.3-54.2); Mean Corpuscular HGB Conc 34.1 GM/DL (32-36); Mean Corpuscular Volume 100.4 FL (87-102); Mean Platelet Volume 10.6 FL (9.6-12.0); Monocytes % 4.3 % (1.7-12.7); Neutrophils % 67.3 % (38.7-73.9); Platelet Count 62 T/CUMM (130-400); Red Blood Count 2.69 MC/CUMM (3.8-5.5); Red Cell Distribution Width 18.3 % (9.3-17.3)
[2019-01-26 06:23] LABS: INR 1.8; PT Patient Result 19.9 SECS (9.6-12.2)
[2019-01-26 06:27] LABS: % Iron Saturation 41.8 % (18-50); Ferritin 308.4 ng/ml (8-252)
[2019-01-26 06:43] LABS: Folate 11.9 NG/ML (5.4-24.0); Vitamin B12 1839 PG/ML (211-911)
[2019-01-26 06:44] LABS: Albumin 1.5 G/DL (3.4-5.0); Bilirubin,Total 5.8 MG/DL (0.2-1.0); Calcium 8.2 MG/DL (8.5-10.1); Osmolality,Calculated 280.4 MOS/KG (273-304); Total Protein 7.2 G/DL (6.4-8.3)
[2019-01-26 07:45] LABS: Sedimentation Rate-Westergren 75 MM/HR (0-30)
[2019-01-26] MEDS: predniSONE 20 MG TABLET PO SCH (08:23)
[2019-01-26] MEDS: PANTOPRAZOLE 40 MG VIAL IV SCH (08:23)
[2019-01-26 10:10] LABS: Hemoglobin A1 (Alkaline) 97.1 % (96.5-98.5); Hemoglobin A2 (Alkaline) 2.9 % (1.5-3.5)
[2019-01-26] MEDS: URSODIOL 300 MG CAPSULE PO SCH ×2 (12:54→21:45)
[2019-01-26] MEDS: SODIUM CHLORIDE 0.9% 1,000 ML IV SCH (16:37)
[2019-01-26] MEDS: PANTOPRAZOLE 40 MG TABLET PO SCH (21:45)
[2019-01-27] MEDS: ACETAMINOPHEN 325 MG TABLET PO PRN ×2 (02:30→03:29)
[2019-01-27] MEDS: LACTULOSE 20 GM/30 ML UDCUP PO SCH ×3 (02:31→21:10)
[2019-01-27] MEDS ORDERED: IBUPROFEN 400 MG TABLET PO ONE (04:59)
[2019-01-27 06:24] LABS: Basophils % 0.2 % (0.0-0.8); Eosinophils # 0.1 10*3/uL (0.0-0.87); Eosinophils % 0.4 % (0.00-10.9); Hematocrit 24.9 VOL% (35.7-47.0); Hemoglobin 8.7 GM/DL (12.0-16.0); Immature Granulocytes % 2.3 %; Immature Granulocytes Absolute 0.29 #; Lymphocytes # 1.6 10*3/uL (1.4-4.0); Lymphocytes % 12.5 % (21.3-54.2); Mean Corpuscular HGB Conc 34.9 GM/DL (32-36); Mean Corpuscular Volume 98.8 FL (87-102); Monocytes % 6.2 % (1.7-12.7); NRBC # 0.02 10*3/uL; Neutrophils % 78.4 % (38.7-73.9); Red Blood Count 2.52 MC/CUMM (3.8-5.5); Red Cell Distribution Width 18.3 % (9.3-17.3); White Blood Count 12.5 T/CUMM (4-12)
[2019-01-27 06:26] LABS: Platelet Count 53 T/CUMM (130-400)
[2019-01-27 06:43] LABS: Albumin 1.5 G/DL (3.4-5.0); Bilirubin,Total 7.4 MG/DL (0.2-1.0); Calcium 8.2 MG/DL (8.5-10.1); Osmolality,Calculated 269.2 MOS/KG (273-304); Total Protein 6.7 G/DL (6.4-8.3)
[2019-01-27 06:48] LABS: Anisocytosis 3+; Band Neutrophils 14 % (0-10); Lymphocytes 8 % (20-55); Platelet Estimate Decreased; Segmented Neutrophils 70 % (50-85); Total Cells Counted 100
[2019-01-27 06:49] LABS: Burr Cells 1+; Macrocytosis 1+; Poikilocytosis 2+; Polychromasia 1+; Target Cells Few
[2019-01-27] MEDS ORDERED: LACTATED RINGERS 1,000 ML IV SCH (08:00)
[2019-01-27] MEDS: URSODIOL 300 MG CAPSULE PO SCH ×2 (08:42→21:10)
[2019-01-27] MEDS: PANTOPRAZOLE 40 MG TABLET PO SCH ×2 (08:43→21:10)
[2019-01-27] MEDS ORDERED: SODIUM CHLORIDE 0.9% 1,000 ML IV ONE (08:57)
[2019-01-27] MEDS ORDERED: VANCOMYCIN INJ 1,000 MG in SODIUM CHLORIDE 0.9% 250 ML IV SCH (09:00)
[2019-01-27] MEDS: LEVOFLOXACIN INJ 500 MG in PREMIX 1 EACH IV SCH (09:13)
[2019-01-27] MEDS: VANCOMYCIN INJ 1,500 MG in SODIUM CHLORIDE 0.9% 500 ML IV SCH ×2 (11:48→21:11)
[2019-01-27] MEDS: CHOLESTYRAMINE 4 GM PACK PO SCH ×2 (11:51→21:10)
[2019-01-27] MEDS: SODIUM CHLORIDE 0.9% 1,000 ML IV SCH (12:13)
[2019-01-27 12:39] LABS: Apearance,Urine Slightly Hazy (Clear); Bacteria,Urine Occasional /HPF (Few); Blood, Urine Negative (Negative); Calcium Oxalate Crystals,Urine Few /HPF (Few); Glucose,Urine (UA) Negative (Negative); Hyaline Casts,Urine 6 /LPF (0-3); Ketones,Urine Negative (Negative); Mucus,Urine Occasional /LPF (Occasional); Nitrite,Urine Negative (Negative); Protein,Urine Negative; RBC,Urine 1 /HPF (0-4); Squamous Epithelial Cell,Urine Occasional /HPF (0-10); Transitional Epi Cells,Urine Occasional /HPF (<1); Urine Color Amber (Yellow); WBC,Urine 5 /HPF (0-6)
[2019-01-27 12:40] LABS: Bilirubin,Urine Small mg/dL (Negative)
[2019-01-27] MEDS ORDERED: ZINC OXIDE PASTE 113 GM TUBE TOP PRN (15:26)
[2019-01-28 05:50] LABS: Albumin 1.2 G/DL (3.4-5.0); Bilirubin,Total 8.3 MG/DL (0.2-1.0); Calcium 7.7 MG/DL (8.5-10.1); Osmolality,Calculated 271.1 MOS/KG (273-304); Total Protein 5.7 G/DL (6.4-8.3)
[2019-01-28 06:52] LABS: Basophils # 0.1 10*3/uL (0.0-0.2); Basophils % 0.2 % (0.0-0.8); Eosinophils # 0.2 10*3/uL (0.0-0.87); Eosinophils % 1.1 % (0.00-10.9); Hematocrit 20.3 VOL% (35.7-47.0); Immature Granulocytes % 2.6 %; Immature Granulocytes Absolute 0.56 #; Lymphocytes # 4.2 10*3/uL (1.4-4.0); Lymphocytes % 19.4 % (21.3-54.2); Mean Corpuscular HGB Conc 34.5 GM/DL (32-36); Mean Corpuscular Volume 100.5 FL (87-102); Mean Platelet Volume 10.8 FL (9.6-12.0); Monocytes % 9.3 % (1.7-12.7); NRBC # 0.04 10*3/uL; Neutrophils % 67.4 % (38.7-73.9); Red Blood Count 2.02 MC/CUMM (3.8-5.5); Red Cell Distribution Width 18.2 % (9.3-17.3); White Blood Count 21.9 T/CUMM (4-12)
[2019-01-28 06:54] LABS: Platelet Count 44 T/CUMM (130-400)
[2019-01-28 07:12] LABS: Burr Cells Slight; Eosinophils 2 % (0-10); Hypochromasia 1+; Lymphocytes 15 % (20-55); Ovalocytes Slight; Platelet Estimate Decreased; Segmented Neutrophils 78 % (50-85); Total Cells Counted 100
[2019-01-28 07:13] LABS: Macrocytosis Slight
[2019-01-28] MEDS: SODIUM CHLORIDE 0.9% 1,000 ML IV SCH (09:37)
[2019-01-28] MEDS: LEVOFLOXACIN INJ 500 MG in PREMIX 1 EACH IV SCH (10:07)
[2019-01-28] MEDS: PANTOPRAZOLE 40 MG TABLET PO SCH ×2 (10:08→20:34)
[2019-01-28] MEDS: CHOLESTYRAMINE 4 GM PACK PO SCH ×2 (10:08→20:34)
[2019-01-28] MEDS: LACTULOSE 20 GM/30 ML UDCUP PO SCH (10:08)
[2019-01-28] MEDS: URSODIOL 300 MG CAPSULE PO SCH ×2 (10:08→20:34)
[2019-01-28] MEDS ORDERED: SODIUM CHLORIDE 0.9% 1,000 ML IV PRN (10:10)
[2019-01-28] MEDS: prednisoLONE 15 MG/5 ML ORAL.SYR PO SCH (11:10)
[2019-01-28] MEDS: VANCOMYCIN INJ 1,500 MG in SODIUM CHLORIDE 0.9% 500 ML IV SCH ×2 (11:10→21:13)
[2019-01-28] MEDS: FUROSEMIDE 20 MG TABLET PO SCH (15:39)
[2019-01-29 07:20] LABS: Basophils % 0.1 % (0.0-0.8); Eosinophils % 0.2 % (0.00-10.9); Hematocrit 22.4 VOL% (35.7-47.0); Hemoglobin 7.7 GM/DL (12.0-16.0); Immature Granulocytes % 2.1 %; Immature Granulocytes Absolute 0.34 #; Lymphocytes # 2.7 10*3/uL (1.4-4.0); Lymphocytes % 16.3 % (21.3-54.2); Mean Corpuscular HGB Conc 34.4 GM/DL (32-36); Mean Corpuscular Volume 96.1 FL (87-102); Mean Platelet Volume 10.2 FL (9.6-12.0); Monocytes % 11.9 % (1.7-12.7); Neutrophils % 69.4 % (38.7-73.9); Red Blood Count 2.33 MC/CUMM (3.8-5.5); Red Cell Distribution Width 19.3 % (9.3-17.3); White Blood Count 16.3 T/CUMM (4-12)
[2019-01-29 07:23] LABS: Platelet Count 60 T/CUMM (130-400)
[2019-01-29 07:50] LABS: Band Neutrophils 1 % (0-10); Lymphocytes 14 % (20-55); Segmented Neutrophils 75 % (50-85); Total Cells Counted 100
[2019-01-29 07:51] LABS: Acanthocytes Few; Burr Cells Slight; Hypochromasia 1+; Macrocytosis 1+
[2019-01-29 07:52] LABS: Platelet Estimate Decreased
[2019-01-29 07:58] LABS: Albumin 1.4 G/DL (3.4-5.0); Bilirubin,Total 7.9 MG/DL (0.2-1.0); Calcium 8.5 MG/DL (8.5-10.1); Osmolality,Calculated 275.5 MOS/KG (273-304); Total Protein 6.2 G/DL (6.4-8.3)
[2019-01-29] MEDS: URSODIOL 300 MG CAPSULE PO SCH (09:07)
[2019-01-29] MEDS: PANTOPRAZOLE 40 MG TABLET PO SCH (09:07)
[2019-01-29] MEDS: FUROSEMIDE 20 MG TABLET PO SCH (09:07)
[2019-01-29] MEDS: prednisoLONE 15 MG/5 ML ORAL.SYR PO SCH (09:08)
[2019-01-29] MEDS: CHOLESTYRAMINE 4 GM PACK PO SCH (09:08)
[2019-01-29] MEDS: LEVOFLOXACIN INJ 500 MG in PREMIX 1 EACH IV SCH (09:23)
[2019-01-29] MEDS: VANCOMYCIN INJ 1,500 MG in SODIUM CHLORIDE 0.9% 500 ML IV SCH (11:59)
[2019-01-29 12:15] VITALS: BP 122/78
[2019-01-30] MEDS ORDERED: LEVOFLOXACIN 500 MG TABLET PO SCH (09:00)
== END 2019-01-29 14:32 | disposition home or self-care (01) | DRG 378 ==
LOC: EDBD → EDUNIT# → N.ED 21:49 → N.EDINP 01-25 03:43 → N.5E 01-25 04:21
PROVIDERS: ADMIT Hospitalist; ATTEND Hospitalist